=== PATIENT | female | born 1975 | race Caucasian/White ===

== ENCOUNTER → 2018-07-01 12:03 | Outpatient (CLI) | payer OTHER, SELFPAY ==
--- NOTE | 2018-07-01 | DI.US.S_ITS ---
PROCEDURE: US ABDOMEN COMPLETE INDICATIONS: ELEVATED LIVER ENZYMES TECHNIQUE: Real-time scanning was performed of the abdominal and retroperitoneal organs, with image documentation. COMPARISON: None. FINDINGS: Liver: Liver is normal in size and homogeneous in echotexture, diffusely hyperechoic consistent with fatty infiltration. Gallbladder: The gallbladder appears normal. Biliary ducts: Intrahepatic bile ducts are non-dilated. Extrahepatic bile duct caliber measures 8.0 mm. Normal is 6-7 mm or less in diameter, or 10 mm or less post-cholecystectomy. Pancreas: Visualized portions of the pancreas are sonographically normal. Spleen: Spleen is normal in size and homogeneous in echotexture. Kidneys: Kidneys are normal in size and echotexture. Right kidney measures 12.0 cm long; left kidney measures 13.2 cm long. No hydronephrosis or nephrolithiasis. No solid masses. Aorta: Visualized aorta is normal in caliber at less than 3 cm. Iliacs: Not seen due to bowel gas IVC: Not seen due to bowel gas Miscellaneous: No free abdominal fluid. IMPRESSION: Poor visualization of the retroperitoneum over the pelvis due to bowel gas and fatty infiltration and bowel gas obscured visualization of the IVC within the liver. The liver appears fatty infiltrated but without mass lesion or biliary distention. No gallstones are found. Dictated by: Adin Kay M.D. on 07/01/2018 at 13:58 Approved by: Adin Kay M.D. on 07/01/2018 at 13:59
--- NOTE | 2018-07-01 | DI.MG.S_ITS ---
BILATERAL DIGITAL SCREENING MAMMOGRAM 3D/2D WITH CAD: 07/01/2018 CLINICAL: Baseline exam. Routine screening. No prior exams were available for comparison. There are scattered fibroglandular elements in both breasts. Current study was also evaluated with a Computer Aided Detection (CAD) system. There is a focal asymmetry in the right breast upper outer aspect middle depth. There is possible architectural distortion associated with the asymmetry, best seen on the RCC view. There are prominent right axillary lymph nodes seen on the mediolateral oblique view only, which are asymmetric to the contralateral side. No other significant masses, calcifications, or other findings are seen in either breast. IMPRESSION: INCOMPLETE: NEEDS ADDITIONAL IMAGING EVALUATION 1) The focal asymmetry in the right breast upper outer aspect middle depth is indeterminate. Additional views with possible ultrasound are recommended. 2) The asymmetric prominent lymph nodes in the right axilla seen on the mediolateral oblique view only is indeterminate. A targeted ultrasound is recommended. This exam was interpreted at Station ID: [id number]. NOTE: For mammograms, a report in lay terms will be sent to the patient. Approximately 15% of breast malignancies will not be visualized mammographically. In the management of a palpable breast mass, a negative mammogram must not discourage biopsy of a clinically suspicious lesion. Electronically Signed By: Roger Kong M.D. ecl/:07/03/2018 20:47:49 letter sent: Additional Imaging Needed ACR BI-RADS Category 0: Incomplete [id number]
== END ==
PROVIDERS: Visit Provider Nurse Practitioner Family
DX: Z12.31 Encounter for screening mammogram for malignant neoplasm of breast (principal); R74.8 Abnormal levels of other serum enzymes
CPT/HCPCS: 76700; 77063; 77067

== ENCOUNTER → 2023-07-19 15:45 | Outpatient (CLI) | payer OTHER, SELFPAY ==
[2023-07-20 20:19] LABS: Creatinine Urine Random 104.2 mg/dL
[2023-07-20 20:23] LABS: Microalbumi Creatinin Ratio Ur 144.9 ug/mg CR (<30); Microalbumin Urine Random 15.1 mg/dL (0-1.6)
== END ==
PROVIDERS: PCP Physician Assistant; Visit Provider Physician Assistant
DX: R80.9 Proteinuria, unspecified (principal); R81 Glycosuria
CPT/HCPCS: 82043; 82570

== ENCOUNTER → 2023-07-20 08:52 | Outpatient (CLI) | payer OTHER, SELFPAY ==
[2023-07-20 19:16] LABS: Alanine Aminotransferase 182 IU/L (<35); Albumin 4.2 g/dL (3.5-5.0); Albumin Globulin Ratio 1.1 (1.0-2.8); Alkaline Phosphatase 144 U/L (38-126); Aspartate Aminotransferase 126 IU/L (14-36); BUN Creatinine Ratio 34.1 (6-22); Bilirubin Total 0.6 mg/dL (0.2-1.3); Blood Urea Nitrogen 15 mg/dL (7-17); Calcium 9.2 mg/dL (8.4-10.2); Carbon Dioxide 24 mmol/L (22-32); Chloride 102 mmol/L (98-107); Cholesterol 211 mg/dL (140-199); Estimated Glomerular Filt Rate > 60 mL/min (>60); Globulin 3.8 g/dL (1.7-4.1); Glucose 199 mg/dL (70-100); HDL Cholesterol 59 mg/dL (40-60); HEMOLYSIS 20 (0-50); LDL Cholesterol Calculated 120 mg/dL (<100); Sodium 136 mmol/L (137-145); Triglycerides 160 mg/dL (35-150)
[2023-07-20 19:19] LABS: Add Manual Diff / Slide Review NO; Basophils Absolute Auto 100 /uL (0-100); Basophils Percent Auto 0.9 % (0-2); Eosinophils Absolute Auto 200 /uL (0-450); Eosinophils Percent Auto 3.2 % (2-4); Hematocrit 38.6 % (36-46); Hemoglobin 12.8 g/dL (12.0-16.0); Lymphocytes Absolute Auto 1800 /uL (1100-4500); Lymphocytes Percent Auto 33.2 % (25-40); Mean Corpuscular HGB Conc 33.2 % (30-36); Mean Corpuscular Hemoglobin 25.8 PG (26-34); Mean Corpuscular Volume 77.6 fL (80-100); Monocytes Absolute Auto 400 /uL (0-900); Monocytes Percent Auto 8.1 % (3-14); Neutrophils Absolute Auto 3000 /uL (1500-7000); Neutrophils Percent Auto 54.6 % (50-75); Platelet Count 265 X10^3/uL (150-400); Red Blood Cell Count 4.98 X10^6/uL (4.0-5.2); White Blood Cell Count 5.5 X10^3/uL (4.5-11.0)
[2023-07-20 19:25] LABS: Hemoglobin A1C% w Est Avg Glu 10.1 % (4.0-6.0)
[2023-07-20 19:36] LABS: TSH w/ Reflex to FT4 1.82 uIU/mL (0.47-4.68)
[2023-07-22 16:19] LABS: Hep C Virus Ab w/Reflex Quant NEGATIVE s/c (NEGATIVE)
== END ==
PROVIDERS: PCP Physician Assistant; Visit Provider Physician Assistant
DX: F41.9 Anxiety disorder, unspecified (principal); R53.83 Other fatigue; Z13.1 Encounter for screening for diabetes mellitus; Z13.6 Encounter for screening for cardiovascular disorders
CPT/HCPCS: 80053; 80061; 83036; 84443; 85025; 86803

== ENCOUNTER → 2023-07-26 12:35 | Outpatient (CLI) | payer OTHER, SELFPAY ==
--- NOTE | 2023-07-26 12:37 | DI.US.S_ITS ---
PROCEDURE: US ABDOMEN LIMITED INDICATIONS: ELEVATED LIVER FUNCTION TESTS TECHNIQUE: Real-time scanning was performed of the abdominal and retroperitoneal organs, with image documentation. COMPARISON: [facility], , US ABDOMEN COMPLETE, 07/01/2018, 12:53. FINDINGS: Liver: Increased liver echogenicity with posterior attenuation, most consistent with moderate to severe steatosis. Focal fat sparing adjacent to the gallbladder fossa Gallbladder: Unremarkable. Biliary ducts: Intrahepatic bile ducts are non-dilated. Extrahepatic bile duct caliber measures 3.5 mm. Normal is 6-7 mm or less in diameter, or 10 mm or less post-cholecystectomy. Pancreas: Visualized portions of the pancreas are sonographically normal. IMPRESSION: Hepatic steatosis. In the absence of alcohol use or other confounding factors, elevated LFTs may indicate non-alcoholic steatohepatitis (COHU). Dictated by: Charles Rene M.D. on 07/26/2023 at 14:25 Approved by: Charles Rene M.D. on 07/26/2023 at 14:26
== END ==
PROVIDERS: PCP Physician Assistant; Referring Provider Physician Assistant Medical; Visit Provider Physician Assistant Medical
DX: K76.0 Fatty (change of) liver, not elsewhere classified (principal); R79.89 Other specified abnormal findings of blood chemistry
CPT/HCPCS: 76705

== ENCOUNTER → 2023-08-04 13:59 | Outpatient (CLI) | payer OTHER, SELFPAY ==
[2023-08-04 19:50] LABS: Microalbumi Creatinin Ratio Ur 32.5 ug/mg CR (<30); Microalbumin Urine Random 8.7 mg/dL (0-1.6)
== END ==
PROVIDERS: PCP Physician Assistant; Visit Provider Physician Assistant Medical
DX: E11.9 Type 2 diabetes mellitus without complications (principal)
CPT/HCPCS: 82043; 82570

== ENCOUNTER → 2023-09-08 08:55 | Outpatient (CLI) | payer OTHER, SELFPAY ==
[2023-09-08 19:35] LABS: Alanine Aminotransferase 76 IU/L (<35); Alkaline Phosphatase 115 U/L (38-126); Aspartate Aminotransferase 58 IU/L (14-36); BUN Creatinine Ratio 24.6 (6-22); Bilirubin Total 0.6 mg/dL (0.2-1.3); Blood Urea Nitrogen 14 mg/dL (7-17); Calcium 9.3 mg/dL (8.4-10.2); Carbon Dioxide 26 mmol/L (22-32); Chloride 101 mmol/L (98-107); Cholesterol 165 mg/dL (140-199); Estimated Glomerular Filt Rate > 60 mL/min (>60); Glucose 128 mg/dL (70-100); HDL Cholesterol 55 mg/dL (40-60); HEMOLYSIS < 15 (0-50); Hemoglobin A1C% w Est Avg Glu 8.3 % (4.0-6.0); LDL Cholesterol Calculated 86 mg/dL (<100); Potassium 3.9 mmol/L (3.4-5.1); Sodium 137 mmol/L (137-145); Triglycerides 120 mg/dL (35-150)
[2023-09-08 19:42] LABS: Creatinine Urine Random 196.3 mg/dL
[2023-09-08 19:46] LABS: Microalbumi Creatinin Ratio Ur 33.1 ug/mg CR (<30); Microalbumin Urine Random 6.5 mg/dL (0-1.6)
[2023-09-08 20:31] LABS: Albumin 4.4 g/dL (3.5-5.0); Albumin Globulin Ratio 1.2 (1.0-2.8); Globulin 3.6 g/dL (1.7-4.1)
== END ==
PROVIDERS: PCP Physician Assistant; Visit Provider Physician Assistant Medical
DX: I10 Essential (primary) hypertension (principal); K76.0 Fatty (change of) liver, not elsewhere classified; E78.5 Hyperlipidemia, unspecified; R73.9 Hyperglycemia, unspecified; E11.9 Type 2 diabetes mellitus without complications
CPT/HCPCS: 80053; 80061; 82043; 82570; 83036

== ENCOUNTER → 2023-11-01 10:10 | Outpatient (CLI) | payer OTHER, SELFPAY ==
[2023-11-01 19:32] LABS: Prothrombin Time 11.3 SECONDS (9.4-12.5)
[2023-11-01 19:42] LABS: Add Manual Diff / Slide Review NO; Basophils Absolute Auto 0 /uL (0-100); Basophils Percent Auto 0.6 % (0-2); Eosinophils Absolute Auto 200 /uL (0-450); Hematocrit 36.4 % (36-46); Hemoglobin 12.1 g/dL (12.0-16.0); Lymphocytes Absolute Auto 2000 /uL (1100-4500); Lymphocytes Percent Auto 27.6 % (25-40); Mean Corpuscular HGB Conc 33.2 % (30-36); Mean Corpuscular Volume 84.3 fL (80-100); Monocytes Absolute Auto 500 /uL (0-900); Monocytes Percent Auto 6.5 % (3-14); Neutrophils Absolute Auto 4400 /uL (1500-7000); Neutrophils Percent Auto 62.3 % (50-75); Platelet Count 278 X10^3/uL (150-400); Red Blood Cell Count 4.32 X10^6/uL (4.0-5.2); Red Cell Distribution Width 15.4 % (11.6-14.8); White Blood Cell Count 7.1 X10^3/uL (4.5-11.0)
[2023-11-01 19:55] LABS: HEMOLYSIS < 15 (0-50); Iron 50 ug/dL (37-170)
[2023-11-01 20:01] LABS: Alanine Aminotransferase 89 IU/L (<35); Albumin 4.5 g/dL (3.5-5.0); Albumin Globulin Ratio 1.2 (1.0-2.8); Alkaline Phosphatase 131 U/L (38-126); Aspartate Aminotransferase 65 IU/L (14-36); BUN Creatinine Ratio 29.5 (6-22); Bilirubin Total 0.5 mg/dL (0.2-1.3); Blood Urea Nitrogen 18 mg/dL (7-17); Calcium 9.6 mg/dL (8.4-10.2); Carbon Dioxide 23 mmol/L (22-32); Chloride 102 mmol/L (98-107); Estimated Glomerular Filt Rate > 60 mL/min (>60); Globulin 3.9 g/dL (1.7-4.1); Glucose 119 mg/dL (70-100); HEMOLYSIS < 15 (0-50); Potassium 4.1 mmol/L (3.4-5.1); Sodium 138 mmol/L (137-145); Total Protein 8.4 g/dL (6.3-8.2)
[2023-11-01 20:05] LABS: Percent Iron Saturation 11 % (15-50); Total Iron Binding Capacity 468 ug/dL (265-497); Transferrin 401 mg/dL (206-381)
[2023-11-02 20:40] LABS: Hepatitis B Surface Antigen NEGATIVE s/c (NEGATIVE)
[2023-11-02 21:01] LABS: Hep C Virus Ab w/Reflex Quant NEGATIVE s/c (NEGATIVE)
[2023-11-03 00:07] LABS: Hepatitis B Core Antibody Negative (Negative)
[2023-11-03 04:20] LABS: Alpha 1 Anti Trypsin 151 mg/dL (101-187); Ceruloplasmin 28.5 mg/dL (19.0-39.0)
[2023-11-04 08:26] LABS: Hepatitis B Surf Ab Qualitativ Non Reactive (.)
[2023-11-04 14:24] LABS: Anti Mitochondrial ABY IGG <20.0 Units (0.0-20.0); Smooth Muscle Antibody 51 Units (0-19)
[2023-11-04 21:36] LABS: Deamidated Gliadin Ab IgA 105 units (0-19); Deamidated Gliadin Ab IgG 2 units (0-19); Immunoglobulin A,Qn 372 mg/dL (87-352); t-Transglutaminase IgA <2 U/mL (0-3)
[2023-11-05 21:37] LABS: ANA Screen, IFA Positive (.)
== END ==
PROVIDERS: PCP Physician Assistant; Visit Provider Internal Medicine Gastroenterology
DX: Z12.11 Encounter for screening for malignant neoplasm of colon (principal); R79.89 Other specified abnormal findings of blood chemistry
CPT/HCPCS: 80053; 81596; 82103; 82390; 82784; 83516; 83540; 83550; 85025; 85610; 86038; 86704; 86706; 86803; 87340

== ENCOUNTER → 2023-12-22 09:16 | Outpatient (CLI) | payer OTHER, SELFPAY ==
[2023-12-22 19:17] LABS: Alanine Aminotransferase 62 IU/L (<35); Albumin Globulin Ratio 1.1 (1.0-2.8); Alkaline Phosphatase 114 U/L (38-126); Aspartate Aminotransferase 46 IU/L (14-36); BUN Creatinine Ratio 25.9 (6-22); Bilirubin Total 0.4 mg/dL (0.2-1.3); Blood Urea Nitrogen 14 mg/dL (7-17); Calcium 9.4 mg/dL (8.4-10.2); Carbon Dioxide 39 mmol/L (22-32); Chloride 103 mmol/L (98-107); Cholesterol 200 mg/dL (140-199); Estimated Glomerular Filt Rate > 60 mL/min (>60); Globulin 3.7 g/dL (1.7-4.1); Glucose 119 mg/dL (70-100); HDL Cholesterol 59 mg/dL (40-60); HEMOLYSIS < 15 (0-50); LDL Cholesterol Calculated 122 mg/dL (<100); Potassium 4.2 mmol/L (3.4-5.1); Sodium 140 mmol/L (137-145); Total Protein 7.7 g/dL (6.3-8.2); Triglycerides 96 mg/dL (35-150)
[2023-12-22 19:39] LABS: Hemoglobin A1C% w Est Avg Glu 6.1 % (4.0-6.0)
[2023-12-22 19:45] LABS: Microalbumin Urine Random 1.8 mg/dL (0-1.6)
[2023-12-22 20:22] LABS: Creatinine Urine Random 166.2 mg/dL; Microalbumi Creatinin Ratio Ur 10.8 ug/mg CR (<30)
== END ==
PROVIDERS: PCP Physician Assistant; Visit Provider Physician Assistant
DX: N28.9 Disorder of kidney and ureter, unspecified (principal); I10 Essential (primary) hypertension; E78.5 Hyperlipidemia, unspecified; E11.9 Type 2 diabetes mellitus without complications
CPT/HCPCS: 80053; 80061; 82043; 82570; 83036

== ENCOUNTER → 2024-04-24 10:53 | Outpatient (CLI) | payer OTHER, SELFPAY ==
[2024-04-24 19:28] LABS: Hematocrit 39.8 % (36-46); Hemoglobin 13.3 g/dL (12.0-16.0); Mean Corpuscular HGB Conc 33.4 % (30-36); Mean Corpuscular Hemoglobin 28.3 PG (26-34); Mean Corpuscular Volume 84.8 fL (80-100); Platelet Count 259 X10^3/uL (150-400); Red Blood Cell Count 4.69 X10^6/uL (4.0-5.2); Red Cell Distribution Width 16.5 % (11.6-14.8); White Blood Cell Count 8.8 X10^3/uL (4.5-11.0)
[2024-04-24 19:36] LABS: Hemoglobin A1C% w Est Avg Glu 6.2 % (4.0-6.0)
[2024-04-24 19:40] LABS: Alanine Aminotransferase 39 IU/L (<35); Albumin 4.3 g/dL (3.5-5.0); Albumin Globulin Ratio 1.1 (1.0-2.8); Alkaline Phosphatase 84 U/L (38-126); Aspartate Aminotransferase 32 IU/L (14-36); BUN Creatinine Ratio 25.4 (6-22); Bilirubin Total 0.4 mg/dL (0.2-1.3); Blood Urea Nitrogen 16 mg/dL (7-17); Calcium 9.7 mg/dL (8.4-10.2); Carbon Dioxide 25 mmol/L (22-32); Chloride 102 mmol/L (98-107); Estimated Glomerular Filt Rate > 60 mL/min (>60); Globulin 3.8 g/dL (1.7-4.1); Glucose 111 mg/dL (70-100); HEMOLYSIS < 15 (0-50); Sodium 136 mmol/L (137-145); Total Protein 8.1 g/dL (6.3-8.2)
[2024-04-24 20:07] LABS: Anisocytosis 1+; Neutrophils Absolute Manual 6512 /uL (3000-5900); Total Cells Counted 100
[2024-04-24 20:10] LABS: TSH w/ Reflex to FT4 0.79 uIU/mL (0.47-4.68)
== END ==
PROVIDERS: PCP Physician Assistant; Visit Provider Physician Assistant
DX: F32.A Depression, unspecified (principal); E11.21 Type 2 diabetes mellitus with diabetic nephropathy; R79.89 Other specified abnormal findings of blood chemistry; E11.9 Type 2 diabetes mellitus without complications
CPT/HCPCS: 80053; 83036; 84443; 85025

== ENCOUNTER → 2024-08-31 14:38 | Outpatient (CLI) | payer OTHER, SELFPAY | PROVIDERS: PCP Physician Assistant; Visit Provider Nurse Practitioner Adult Health | DX: N89.8 Other specified noninflammatory disorders of vagina (principal) | CPT/HCPCS: 87798; 87801 ==

== ENCOUNTER → 2024-11-07 09:17 | Outpatient (CLI) | payer OTHER, SELFPAY ==
[2024-11-07 19:38] LABS: Add Manual Diff / Slide Review NO; Basophils Absolute Auto 0 /uL (0-100); Basophils Percent Auto 0.4 % (0-2); Eosinophils Absolute Auto 300 /uL (0-450); Eosinophils Percent Auto 3.6 % (2-4); Hematocrit 41.3 % (36-46); Hemoglobin 13.7 g/dL (12.0-16.0); Lymphocytes Absolute Auto 2200 /uL (1100-4500); Lymphocytes Percent Auto 30.7 % (25-40); Mean Corpuscular HGB Conc 33.1 % (30-36); Mean Corpuscular Hemoglobin 28.9 PG (26-34); Mean Corpuscular Volume 87.4 fL (80-100); Monocytes Absolute Auto 500 /uL (0-900); Monocytes Percent Auto 6.8 % (3-14); Neutrophils Absolute Auto 4300 /uL (1500-7000); Neutrophils Percent Auto 58.5 % (50-75); Platelet Count 286 X10^3/uL (150-400); Red Blood Cell Count 4.72 X10^6/uL (4.0-5.2); Red Cell Distribution Width 13.1 % (11.6-14.8); White Blood Cell Count 7.3 X10^3/uL (4.5-11.0)
[2024-11-07 19:52] LABS: Alanine Aminotransferase 41 IU/L (<35); Albumin 4.4 g/dL (3.5-5.0); Albumin Globulin Ratio 1.4 (1.0-2.8); Alkaline Phosphatase 80 U/L (38-126); Aspartate Aminotransferase 32 IU/L (14-36); Bilirubin Total 0.3 mg/dL (0.2-1.3); Blood Urea Nitrogen 19 mg/dL (7-17); Calcium 9.6 mg/dL (8.4-10.2); Carbon Dioxide 30 mmol/L (22-32); Chloride 103 mmol/L (98-107); Cholesterol 253 mg/dL (140-199); Estimated Glomerular Filt Rate > 60 mL/min (>60); Globulin 3.2 g/dL (1.7-4.1); Glucose 150 mg/dL (70-100); HDL Cholesterol 55 mg/dL (40-60); HEMOLYSIS < 15 (0-50); LDL Cholesterol Calculated 157 mg/dL (<100); Potassium 4.2 mmol/L (3.4-5.1); Sodium 137 mmol/L (137-145); Total Protein 7.6 g/dL (6.3-8.2); Triglycerides 206 mg/dL (35-150)
[2024-11-07 20:00] LABS: Hemoglobin A1C% w Est Avg Glu 6.4 % (4.0-6.0)
[2024-11-07 20:55] LABS: Creatinine Urine Random 97.95 mg/dL
[2024-11-07 21:03] LABS: Microalbumin Urine Random 1.5 mg/dL (0-1.6)
== END ==
PROVIDERS: PCP Physician Assistant; Visit Provider Physician Assistant
DX: N28.9 Disorder of kidney and ureter, unspecified (principal); R79.89 Other specified abnormal findings of blood chemistry; E78.5 Hyperlipidemia, unspecified; I10 Essential (primary) hypertension; E11.9 Type 2 diabetes mellitus without complications
CPT/HCPCS: 80053; 80061; 82043; 82570; 83036; 85025

== ENCOUNTER → 2025-04-16 11:08 | Outpatient (CLI) | payer OTHER, SELFPAY ==
[2025-04-16 12:13] LABS: Add Manual Diff / Slide Review NO; Basophils Absolute Auto 100 /uL (0-100); Basophils Percent Auto 0.9 % (0-2); Eosinophils Absolute Auto 200 /uL (0-450); Eosinophils Percent Auto 2.8 % (2-4); Hematocrit 41.3 % (36-46); Hemoglobin 14.1 g/dL (12.0-16.0); Lymphocytes Absolute Auto 2200 /uL (1100-4500); Lymphocytes Percent Auto 38.7 % (25-40); Mean Corpuscular Hemoglobin 29.8 PG (26-34); Mean Corpuscular Volume 87.5 fL (80-100); Monocytes Absolute Auto 500 /uL (0-900); Monocytes Percent Auto 9.6 % (3-14); Neutrophils Absolute Auto 2700 /uL (1500-7000); Platelet Count 248 X10^3/uL (150-400); Red Blood Cell Count 4.73 X10^6/uL (4.0-5.2); Red Cell Distribution Width 13.8 % (11.6-14.8); White Blood Cell Count 5.6 X10^3/uL (4.5-11.0)
[2025-04-16 12:43] LABS: Alanine Aminotransferase 31 IU/L (<35); Albumin 4.7 g/dL (3.5-5.0); Albumin Globulin Ratio 1.2 (1.0-2.8); Alkaline Phosphatase 76 U/L (38-126); Aspartate Aminotransferase 29 IU/L (14-36); BUN Creatinine Ratio 26.7 (6-22); Bilirubin Total 0.4 mg/dL (0.2-1.3); Blood Urea Nitrogen 16 mg/dL (7-17); Calcium 9.2 mg/dL (8.4-10.2); Carbon Dioxide 28 mmol/L (22-32); Chloride 104 mmol/L (98-107); Cholesterol 163 mg/dL (140-199); Estimated Glomerular Filt Rate > 60 mL/min (>60); Globulin 3.9 g/dL (1.7-4.1); Glucose 115 mg/dL (70-99); HDL Cholesterol 48 mg/dL (40-60); HEMOLYSIS < 15 (0-50); LDL Cholesterol Calculated 94 mg/dL (<100); Potassium 4.3 mmol/L (3.4-5.1); Sodium 141 mmol/L (137-145); Total Protein 8.6 g/dL (6.3-8.2); Triglycerides 103 mg/dL (35-150)
[2025-04-16 13:12] LABS: TSH w/ Reflex to FT4 1.42 uIU/mL (0.47-4.68)
[2025-04-16 13:16] LABS: Ferritin 26 ng/mL (11-264)
[2025-04-16 14:53] LABS: Follicle Stimulating Hormone 29.5 mIU/mL
[2025-04-16 15:11] LABS: Estradiol, Total 26.6 pg/mL
[2025-04-16 16:20] LABS: HIV 1 & 2 Ab/Ag 4th Gen Combo NEGATIVE (NEGATIVE)
== END ==
LOC: LAB 11:10
PROVIDERS: PCP Physician Assistant; Referring Provider Nurse Practitioner Adult Health; Visit Provider Nurse Practitioner Adult Health
DX: R79.89 Other specified abnormal findings of blood chemistry (principal); E78.5 Hyperlipidemia, unspecified; Z79.899 Other long term (current) drug therapy; Z12.11 Encounter for screening for malignant neoplasm of colon; Z11.4 Encounter for screening for human immunodeficiency virus [HIV]; F41.8 Other specified anxiety disorders; N95.9 Unspecified menopausal and perimenopausal disorder
CPT/HCPCS: 36415; 80053; 80061; 82397; 82670; 82728; 83001; 84443; 85025; 87389

== ENCOUNTER → 2025-04-16 16:08 | Outpatient (CLI) | payer OTHER, SELFPAY ==
--- NOTE | 2025-04-16 16:10 | DI.US.S_ITS ---
PROCEDURE: US PELVIC COMPLETE INDICATIONS: Postmenopausal bleeding TECHNIQUE: Real-time scanning was performed of the pelvic organs, with image documentation. Additional endovaginal scanning was necessary due to incomplete visualization of the adnexal and endometrial structures by transabdominal scanning. COMPARISON: None. FINDINGS: Uterus: Uterus is anteverted and normal in size at 8.3 x 4.6 x 4.8 cm. The myometrium is heterogeneous. The endometrium measures 5.6 mm combined thickness. Ovaries: The right ovary measures 1.2 x 1.3 x 2.5 cm, with a calculated ovarian volume of 1.9 cc. The left ovary measures 2.2 x 1.2 x 1.6 cm, with a calculated ovarian volume of 2.2 cc. The ovaries have a normal sonographic appearance. Less than 12 follicles can be seen in each ovary. No adnexal masses are seen. Other: No pathologic free abdominal or pelvic fluid. IMPRESSION: Mildly thickened endometrial echo complex to 5.6 mm in the setting of post menopausal bleeding. Recommend OBGYN follow-up for possible endometrial biopsy. Approved by: Rachid Hodges M.D. on 04/17/2025 at 10:50
== END ==
LOC: US 16:09
PROVIDERS: PCP Physician Assistant; Referring Provider Nurse Practitioner Adult Health; Visit Provider Nurse Practitioner Adult Health
DX: N95.0 Postmenopausal bleeding (principal); R93.89 Abnormal findings on diagnostic imaging of other specified body structures; R79.89 Other specified abnormal findings of blood chemistry; E78.5 Hyperlipidemia, unspecified; Z79.899 Other long term (current) drug therapy; Z11.4 Encounter for screening for human immunodeficiency virus [HIV]; Z12.11 Encounter for screening for malignant neoplasm of colon; F41.8 Other specified anxiety disorders; N95.9 Unspecified menopausal and perimenopausal disorder
CPT/HCPCS: 36415; 76830; 76856; 80053; 80061; 82397; 82670; 82728; 83001; 84443; 85025; 87389